=== PATIENT | male | born 1955 | race Caucasian/White ===

== ENCOUNTER 2020-09-10 14:37 | Outpatient (RCR) | payer MEDICARE, OTHER | END 2020-12-09 | disposition home or self-care (01) | LOC: ONC 14:37 | PROVIDERS: ATTEND Radiology Radiation Oncology | DX: C61 Malignant neoplasm of prostate (principal); I10 Essential (primary) hypertension; E03.9 Hypothyroidism, unspecified; Z87.891 Personal history of nicotine dependence; Z79.890 Hormone replacement therapy; Z79.899 Other long term (current) drug therapy | CPT/HCPCS: 99204 ==